=== PATIENT | male | born 1970 | race Hispanic/Latino ===

== ENCOUNTER → 2021-02-04 | Outpatient (CLI) | payer OTHER ==
[~2021-02-04] MED LIST: IOHEXOL 350 MG/ML 100ML INFUS..BTL IV ONE
== END | disposition home or self-care (01) ==
LOC: RAH 07:47
PROVIDERS: ATTEND Internal Medicine Gastroenterology
DX: C20 Malignant neoplasm of rectum (principal); R59.1 Generalized enlarged lymph nodes; Z90.49 Acquired absence of other specified parts of digestive tract
CPT/HCPCS: 74178; Q9967

== ENCOUNTER 2021-02-24 05:53 | Day surgery (SDC) | payer OTHER ==
[~2021-02-24] VITALS: Ht 175.3 cm; Wt 117.0 kg
[~2021-02-24 05:53] MED LIST changes: +ASCO100T12 PO; -IOHEXOL 350 MG/ML 100ML INFUS..BTL IV ONE; +LACT1CAP81 PO; +MULT-1203 PO; +[UNRECOGNIZED DRUG - OTHER] PO
[2021-02-24 06:00] VITALS: BP 102/68
[2021-02-24] MEDS ORDERED: SODIUM CHLORIDE 0.9% 1000ML 1,000 ML IV ONE (06:19)
[2021-02-24] MEDS ORDERED: PROPOFOL 10 MG/ML 20ML VIAL IV ONE (07:28)
[2021-02-24] MEDS ORDERED: LIDOCAINE HCL 400MG/20ML VIAL ONE (07:28)
[2021-02-24] MEDS ORDERED: SODIUM CHLORIDE 0.9% 10 ML VIAL ONE (07:39)
[2021-02-24] MEDS ORDERED: PHENYLEPHRINE HCL 10 MG/ML 1ML VIAL IV ONE (07:39)
[2021-02-24 07:45] VITALS: BP 93/59
[2021-02-24 07:50] VITALS: BP 107/41
[2021-02-24 07:55] VITALS: BP 105/57
[2021-02-24 08:00] VITALS: BP 106/69
[2021-02-24 08:05] VITALS: BP 109/69
== END 2021-02-24 08:15 | disposition home or self-care (01) ==
LOC: ENDO 05:53 → DAH 05:53 → ENDO 08:15
PROVIDERS: ATTEND Internal Medicine Gastroenterology
DX: C20 Malignant neoplasm of rectum (principal); C21.8 Malignant neoplasm of overlapping sites of rectum, anus and anal canal; K62.89 Other specified diseases of anus and rectum; K59.04 Chronic idiopathic constipation; K64.9 Unspecified hemorrhoids; Z79.899 Other long term (current) drug therapy
CPT/HCPCS: 45341; 87635; A4215 ×2; A4221; A4222; A4223; A4606; A4620; A4657; A4663; C9803; J2370; J2704; J3490; J7030

== ENCOUNTER → 2022-11-23 | Outpatient (CLI) | payer OTHER ==
[~2022-11-23] MED LIST changes: +GADOTERATE MEGLUMINE 10 MMOL/20 ML VIAL IV ONE
== END | disposition home or self-care (01) ==
LOC: RAH 11:22
PROVIDERS: ATTEND Surgery
DX: C20 Malignant neoplasm of rectum (principal)
CPT/HCPCS: 72197; 84520; 82565; 36415; A9575

== ENCOUNTER → 2022-12-01 | Outpatient (CLI) | payer OTHER ==
[~2022-12-01] MED LIST changes: -GADOTERATE MEGLUMINE 10 MMOL/20 ML VIAL IV ONE; +IOHEXOL 350 MG/ML 100ML INFUS..BTL IV ONE
== END | disposition home or self-care (01) ==
LOC: RAH 08:54
PROVIDERS: ATTEND Surgery
DX: C20 Malignant neoplasm of rectum (principal); K43.9 Ventral hernia without obstruction or gangrene; R91.1 Solitary pulmonary nodule; Z90.49 Acquired absence of other specified parts of digestive tract
CPT/HCPCS: 71260; 74177; Q9967